=== PATIENT | female | born 1945 ===

== ENCOUNTER 2021-04-28 16:11 | Outpatient (CLI) | payer MEDICARE | END 2021-04-28 16:12 | disposition home or self-care (01) | LOC: COV 16:11 | PROVIDERS: ATTEND Family Medicine | DX: R53.83 Other fatigue (principal); R68.83 Chills (without fever); R09.81 Nasal congestion; J34.89 Other specified disorders of nose and nasal sinuses; R11.2 Nausea with vomiting, unspecified; Z20.822 Contact with and (suspected) exposure to COVID-19 ==